=== PATIENT | male | born 2000 | race Caucasian/White ===

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

== ENCOUNTER 2020-10-07 06:17 | Emergency (ER) | payer BC ==
[2020-10-07 06:29] VITALS: BP 143/79; PULSE 78
[2020-10-07] MEDS ORDERED: Metoclopramide 10 MG/2 ML SDV IVPUSH ONE (06:38)
--- NOTE | 2020-10-07 06:42 | EDM.PDOC ---
<EvertonDeo lechuga Haley - Last Filed: 10/07/20 08:15> ED HPI GENERAL MEDICAL PROBLEM - General Chief Complaint: Gastrointestinal Problem Stated Complaint: VOMITING Time Seen by Provider: 10/07/20 06:37 - Related Data Allergies Allergy/AdvReac Type Severity Reaction Status Date / Time No Known Allergies Allergy Verified 10/07/20 06:29 Home Meds: Home Meds Ondansetron [Zofran ODT] 4 mg PO Q4H PRN #6 tab.dis 10/07/20 [Rx] Ondansetron [Zofran ODT] 4 mg PO Q4H PRN #6 tab.dis 10/07/20 [Rx] Course - Re-Assessments/Exams Free Text/Narrative Re-Assessment/Exam: 10/07/20 08:02 Patient is alert and awake and would like to go home. I went and visited with him. He is feeling better he still has some lightheadedness. His blood alcohol is back to normal his last drink was probably about 10:00 last night. He believes he will be okay to go home. Departure - Departure Time of Disposition: 08:02 Disposition: Home, Self-Care 01 Clinical Impression: Hangover Qualifiers: Complication of substance-induced condition: uncomplicated Qualified Code(s): F10.120 - Alcohol abuse with intoxication, uncomplicated - Discharge Information Prescriptions: Ondansetron [Zofran ODT] 4 mg PO Q4H PRN #6 tab.dis PRN Reason: Nausea/Vomiting Ondansetron [Zofran ODT] 4 mg PO Q4H PRN #6 tab.dis PRN Reason: Nausea/Vomiting Instructions: Alcohol Intoxication, [id number] Referrals: PCP,None [Primary Care Provider] - Forms: ED Department Discharge Additional Instructions: Return to the emergency room with any questions problems or worsening symptoms. Drink lots of fluids. Avoid alcohol. [place] [facility] will be open between 1 and 3 this afternoon and I have sent a prescription for Zofran, this is an antinausea medication, take 1 every 4 hours as needed. <Jl Soto - Last Filed: 10/09/20 07:21> ED HPI GENERAL MEDICAL PROBLEM - General Source of Information: Reports: Patient History Limitations: Reports: No Limitations - History of Present Illness INITIAL COMMENTS - FREE TEXT/NARRATIVE: 20-year-old male presents to the ED with intractable nausea and vomiting after a night of heavy drinking to celebrate the new year. Patient reports he drinks pineapple cider and was drinking numerous shots last evening. He has been vomiting since he got home from the bar last night. Denies any hematemesis. Mild diffuse upper abdominal discomfort. No diarrhea. No fever or chills. Feels weak. Dizzy upon standing. No history of abdominal surgery. Last meal was a hamburger approximately 2000 hrs. last evening. Emesis is been bilious. Patient reports no allergies to medication he is currently not taking any medications. Onset: Today Onset Date: 10/07/20 Onset Time: 01:00 Duration: Hour(s):, Constant (Actable nausea and vomiting.) Location: Reports: Abdomen (Intractable nausea and vomiting after night of heavy drinking.) Quality: Reports: Ache, Burning Severity: Moderate Improves with: Reports: None Worsens with: Reports: None Context: Reports: Other (Presents to the ED with intractable nausea and vomiting after a night of heavy drinking to celebrate the new .). Denies: Activity, Exercise, Lifting, Sick Contact, Trauma Associated Symptoms: Reports: Loss of Appetite, Malaise, Nausea/Vomiting. Denies: Chest Pain, Cough, cough w sputum, Diaphoresis, Fever/Chills, Headaches, Rash, Seizure (Current since 0100 hrs. 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: Other (see below) (Nothing will stay down.) Headache Pain Score (Numeric/FACES): 4 Past Medical History HEENT History: Reports: Epistaxis - Past Surgical History HEENT Surgical History: Reports: None, Oral Surgery Social & Family History - Tobacco Use Tobacco Use Status *Q: Never Tobacco User - Caffeine Use Caffeine Use: Reports: Energy Drinks - Recreational Drug Use Recreational Drug Use: No - Living Situation & Occupation Living situation: Reports: Single Occupation: Employed ED ROS GENERAL - Review of Systems Review Of Systems: See Below Constitutional: Reports: Malaise, Weakness, Fatigue, Decreased Appetite. Denies: Fever, Chills HEENT: Reports: Vertigo (Is a sense of the room is spinning at times.) Respiratory: Reports: No Symptoms Cardiovascular: Reports: No Symptoms Endocrine: Reports: No Symptoms GI/Abdominal: Reports: Abdominal Pain, Decreased Appetite (Dat discomfort from recurrent vomiting.), Nausea, Vomiting (Nausea and vomiting for the last 5 hours post heavy night of drinking alcohol.) : Reports: No Symptoms Musculoskeletal: Reports: No Symptoms Skin: Reports: No Symptoms Neurological: Reports: Dizziness Psychiatric: Reports: No Symptoms Hematologic/Lymphatic: Reports: No Symptoms Immunologic: Reports: No Symptoms ED EXAM, GI/ABD - Physical Exam Exam: See Below Exam Limited By: No Limitations General Appearance: Alert, WD/WN, Moderate Distress, Other (Current vomiting while I was in the exam room. Emesis is bilious without any blood. Temperature is reportedly 35.8. Question the accuracy of this. Heart rate 78 in sinus respiratory is 18 with O2 sats of 97% room air BP 1 4379) Eyes: Bilateral: Normal Appearance, Nystagmus (Nystagmus on lateral gaze) Throat/Mouth: Other (Tongue is dry and coated.) Head: Atraumatic, Normocephalic, Other (. No overt signs of any head or facial trauma.) Neck: Normal Inspection, Supple, Non-Tender, Full Range of Motion. No: Lymphadenopathy (L), Lymphadenopathy (R) Respiratory/Chest: No Respiratory Distress, Lungs Clear, Normal Breath Sounds, Chest Non-Tender Cardiovascular: Normal Peripheral Pulses, Regular Rate, Rhythm, No Edema, No Gallop, No Murmur, No Rub GI/Abdominal Exam: Normal Bowel Sounds, Soft, No Organomegaly, No Mass, Pelvis Stable, Tender, Other (Scaphoid abdomen). No: Guarding, Rigid (Mild tenderness to palpation epigastrium only.), Rebound (No peritoneal signs.) (Male) Exam: No Hernia Back Exam: Normal Inspection, Full Range of Motion. No: CVA Tenderness (L), CVA Tenderness (R) Extremities: Normal Inspection, Normal Range of Motion, Non-Tender, No Pedal Edema Neurological: Alert, Oriented, CN II-XII Intact, Normal Cognition Psychiatric: Normal Affect Skin Exam: Warm, Dry, Intact, Normal Color, No Rash Course - Vital Signs Last Recorded V/S: Last Vital Signs Temp 35.8 C L 10/07/20 06:24 Pulse 78 10/07/20 06:24 Resp 18 10/07/20 06:24 BP 143/79 H 10/07/20 06:24 Pulse Ox 97 10/07/20 06:24 - Orders/Labs/Meds Labs: Laboratory Tests 10/07/20 10/07/20 Range/Units 06:40 06:40 WBC 7.66 (4.23-9.07) K/mm3 RBC 5.73 (4.63-6.08) M/mm3 Hgb 16.3 (13.7-17.5) gm/dl Hct 47.3 (40.1-51.0) % MCV 82.5 (79.0-92.2) fl MCH 28.4 (25.7-32.2) pg MCHC 34.5 (32.2-35.5) g/dl RDW Std Deviation 39.5 (35.1-43.9) fL Plt Count 230 (163-337) K/mm3 MPV 10.0 (9.4-12.3) fl Neut % (Auto) 76.3 H (34.0-67.9) % Lymph % (Auto) 16.1 L (21.8-53.1) % [place] % (Auto) 7.0 (5.3-12.2) % Eos % (Auto) 0.4 L (0.8-7.0) Baso % (Auto) 0.1 (0.1-1.2) % Neut # (Auto) 5.84 H (1.78-5.38) K/mm3 Lymph # (Auto) 1.23 L (1.32-3.57) K/mm3 [place] # (Auto) 0.54 (0.30-0.82) K/mm3 Eos # (Auto) 0.03 L (0.04-0.54) K/mm3 Baso # (Auto) 0.01 (0.01-0.08) K/mm3 Sodium 140 (136-145) mEq/L Potassium 4.3 (3.5-5.1) mEq/L Chloride 103 (98-107) mEq/L Carbon Dioxide 29 (21-32) mEq/L Anion Gap 12.3 (5-15) BUN 12 (7-18) mg/dL Creatinine 1.0 (0.7-1.3) mg/dL Est Cr Clr Drug Dosing 130.24 mL/min Estimated GFR (MDRD) > 60 (>60) mL/min BUN/Creatinine Ratio 12.0 L (14-18) Glucose 152 H (74-106) mg/dL Calcium 9.4 (8.5-10.1) mg/dL Total Bilirubin 0.7 (0.2-1.0) mg/dL AST 24 (15-37) U/L ALT 39 (16-63) U/L Alkaline Phosphatase 72 (46-116) U/L Total Protein 8.2 (6.4-8.2) g/dl Albumin 4.5 (3.4-5.0) g/dl Globulin 3.7 gm/dL Albumin/Globulin Ratio 1.2 (1-2) Lipase 61 L (73-393) U/L Ethyl Alcohol 0.00 (0.00) gm% Meds: Medications Discontinued Medications Generic Name Dose Route Start Last Admin Trade Name Freq PRN Reason Stop Dose Admin Dextrose/Lactated Ringer's 1,000 mls @ 999 mls/hr 10/07/20 06:45 10/07/20 06:42 Dextrose 5%-Lactated Ringers IV 999 mls/hr ASDIRECTED TEREZA Administration Metoclopramide HCl 10 mg 10/07/20 06:38 10/07/20 06:42 Reglan IVPUSH 10/07/20 06:39 10 mg ONETIME ONE Administration - Radiology Interpretation Free Text/Narrative:: 20-year-old male presents to the ED with intractable nausea and vomiting since getting home from the bar at 0100 hrs. this morning. Reports drinking alcohol fairly heavily last night more than his usual to celebrate the new year. This included pineapple cider time 7 or 8 drinks and then shots of mixed alcohol. Patient reports intractable nausea and vomiting without any hematemesis. Mild upper abdominal pain with no radiation to the back. Benign abdominal examination. Plan routine labs to be done including a serum lipase. IV will be D5 LR at open. Given Reglan 10 mg IV. Suspect alcohol induced gastritis possible alcohol induced hepatitis. - Re-Assessments/Exams Free Text/Narrative Re-Assessment/Exam: 10/07/20 06:59 Hematology reveals a normal white count at 7.66. The auto differential shows 76% neutrophils. Hemoglobin is 16.3 with hematocrit of 47.3 indicating hemoconcentration. Platelet count is normal at 230,000 10/07/20 07:05 Care will be turned over to Dr Flores at change of shift. Sepsis Event Note (ED) - Evaluation Sepsis Screening Result: No Definite Risk
[2020-10-07] MEDS ORDERED: Dextrose 5%-Lactated Ringers 1,000 ML IV SCH (06:45)
== END 2020-10-07 08:17 | disposition home or self-care (01) ==
LOC: JD.ED 06:17
DX: F10.120 Alcohol abuse with intoxication, uncomplicated (principal); H55.00 Unspecified nystagmus
CPT/HCPCS: 36415; 80053; 80179; 83690; 85025; 96374; 99284; J2765; J7121

== ENCOUNTER 2021-05-14 13:15 | Emergency (ER) | payer BC ==
[2021-05-14] MEDS ORDERED: Ondansetron 4 MG/2 ML SDV IVPUSH ONE (13:46)
[2021-05-14] MEDS ORDERED: Ketorolac 30 MG/ML SDV IVPUSH ONE (13:46)
[2021-05-14] MEDS ORDERED: Sodium Chloride 0.9% 1,000 ML IV STA (13:46)
[2021-05-14] MEDS ORDERED: diphenhydrAMINE 50 MG/ML SDV IVPUSH ONE (13:49)
[2021-05-14] MEDS ORDERED: Sodium Chloride 0.9% 10 ML Syringe FLUSH PRN (13:49)
--- NOTE | 2021-05-14 15:38 | EDM.PDOC ---
ED HPI GENERAL MEDICAL PROBLEM - General Chief Complaint: Headache Stated Complaint: MIGRAINE X 2 DAYS SENT BY BECCA Time Seen by Provider: 05/14/21 13:26 Source of Information: Reports: Patient, RN Notes Reviewed History Limitations: Reports: No Limitations - History of Present Illness INITIAL COMMENTS - FREE TEXT/NARRATIVE: Patient is a 20-year-old male presenting to the emergency department with complaints of 2-day history of migraine headache. Reports symptoms began early yesterday. Is localized to be behind his bilateral eyes, right more so than left. Reports nausea with dry heaving yesterday. None today. He is had no fever, but states he does feel chilled occasionally. Reports he does have a history of headaches as a teenager which do continue now. He had a migraine when he had Covid back in July. States his headache feels similar to that episode. Denies any neck pain or vision changes. He has no numbness or tingling of the extremities. Had no recent head injuries. His only been using [id number] ibuprofen for relief. He reports that he has had intermittent bilateral flank pain off and on for the last few weeks. Is not present at this time. States it only last for a short period of time and then resolves. Denies any history of kidney stones. Has not noticed any blood in his urine. Denies any burning with urination. He does not have a primary care provider and has never seen a neurologist. Posterior Headache Pain Score (Numeric/FACES): 2 - Related Data Allergies Allergy/AdvReac Type Severity Reaction Status Date / Time No Known Allergies Allergy Verified 10/07/20 06:29 Home Meds: Home Meds . [No Known Home Meds] 05/14/21 [History] Past Medical History HEENT History: Reports: Epistaxis Neurological History: Reports: Migraines - Infectious Disease History Infectious Disease History: Reports: None - Past Surgical History HEENT Surgical History: Reports: None, Oral Surgery Social & Family History - Tobacco Use Tobacco Use Status *Q: Current Every Day Tobacco User Years of Tobacco use: 3 Packs/Tins Daily: 0.1 - Caffeine Use Caffeine Use: Reports: Energy Drinks, Soda, Tea - Recreational Drug Use Recreational Drug Use: No - Living Situation & Occupation Living situation: Reports: Single Occupation: Employed ED ROS GENERAL - Review of Systems Review Of Systems: Comprehensive ROS is negative, except as noted in HPI. - Physical Exam Exam: See Below Exam Limited By: No Limitations General Appearance: Alert, WD/WN, No Apparent Distress Respiratory/Chest: No Respiratory Distress, Lungs Clear, Normal Breath Sounds, No Accessory Muscle Use, Chest Non-Tender Cardiovascular: Normal Peripheral Pulses, Regular Rate, Rhythm, No Edema, No Gallop, No JVD, No Murmur, No Rub GI/Abdominal: Normal Bowel Sounds, Soft, Non-Tender, No Organomegaly, No Distention, No Abnormal Bruit, No Mass Neuro Exam (Abbreviated): Alert, Oriented, CN II-XII Intact, Normal Cognition, Normal Gait, Normal Reflexes, No Motor/Sensory Deficits Psychiatric: Normal Affect, Normal Mood Skin Exam: Warm, Dry, Intact, Normal Color, No Rash Course - Vital Signs Last Recorded V/S: Last Vital Signs Temp 97.5 F 05/14/21 16:12 Pulse 79 05/14/21 16:12 Resp 16 05/14/21 16:12 BP 117/64 05/14/21 16:12 Pulse Ox 98 05/14/21 16:12 - Orders/Labs/Meds Labs: Laboratory Tests 05/14/21 05/14/21 05/14/21 Range/Units 14:10 14:10 14:35 WBC 4.16 L (4.23-9.07) K/mm3 RBC 5.93 (4.63-6.08) M/mm3 Hgb 16.9 (13.7-17.5) gm/dl Hct 49.1 (40.1-51.0) % MCV 82.8 (79.0-92.2) fl MCH 28.5 (25.7-32.2) pg MCHC 34.4 (32.2-35.5) g/dl RDW Std Deviation 39.4 (35.1-43.9) fL Plt Count 165 (163-337) K/mm3 MPV 10.1 (9.4-12.3) fl Neut % (Auto) 79.9 H (34.0-67.9) % Lymph % (Auto) 6.7 L (21.8-53.1) % [place] % (Auto) 13.2 H (5.3-12.2) % Eos % (Auto) 0 L (0.8-7.0) Baso % (Auto) 0.2 (0.1-1.2) % Neut # (Auto) 3.32 (1.78-5.38) K/mm3 Lymph # (Auto) 0.28 L (1.32-3.57) K/mm3 [place] # (Auto) 0.55 (0.30-0.82) K/mm3 Eos # (Auto) 0.00 L (0.04-0.54) K/mm3 Baso # (Auto) 0.01 (0.01-0.08) K/mm3 Manual Slide Review Abnormal smear Sodium 141 (136-145) mEq/L Potassium 4.4 (3.5-5.1) mEq/L Chloride 102 (98-107) mEq/L Carbon Dioxide 28 (21-32) mEq/L Anion Gap 15.4 H (5-15) BUN 8 (7-18) mg/dL Creatinine 1.1 (0.7-1.3) mg/dL Est Cr Clr Drug Dosing 118.94 mL/min Estimated GFR (MDRD) > 60 (>60) mL/min BUN/Creatinine Ratio 7.3 L (14-18) Glucose 121 H (70-99) mg/dL Calcium 8.9 (8.5-10.1) mg/dL Total Bilirubin 0.6 (0.2-1.0) mg/dL AST 18 (15-37) U/L ALT 25 (16-63) U/L Alkaline Phosphatase 69 (46-116) U/L C-Reactive Protein 1.5 H* (<1.0) mg/dL Total Protein 8.0 (6.4-8.2) g/dl Albumin 4.2 (3.4-5.0) g/dl Globulin 3.8 gm/dL Albumin/Globulin Ratio 1.1 (1-2) Urine Color (Yellow) Urine Appearance (Clear) Urine pH (5.0-8.0) Ur Specific [place] (1.005-1.030) Urine Protein (Negative) Urine Glucose (UA) (Negative) Urine Ketones (Negative) Urine Occult Blood (Negative) Urine Nitrite (Negative) Urine Bilirubin (Negative) Urine Urobilinogen (0.2-1.0) Ur Leukocyte Esterase (Negative) Urine RBC (0-5) /hpf Urine WBC (0-5) /hpf Ur Squamous Epith Cells (0-5) /hpf Urine Bacteria (FEW) /hpf Urine Mucus (FEW) /hpf SARS-CoV-2 RNA (QUIQUE) Negative (NEGATIVE) 05/14/21 Range/Units 15:25 WBC (4.23-9.07) K/mm3 RBC (4.63-6.08) M/mm3 Hgb (13.7-17.5) gm/dl Hct (40.1-51.0) % MCV (79.0-92.2) fl MCH (25.7-32.2) pg MCHC (32.2-35.5) g/dl RDW Std Deviation (35.1-43.9) fL Plt Count (163-337) K/mm3 MPV (9.4-12.3) fl Neut % (Auto) (34.0-67.9) % Lymph % (Auto) (21.8-53.1) % [place] % (Auto) (5.3-12.2) % Eos % (Auto) (0.8-7.0) Baso % (Auto) (0.1-1.2) % Neut # (Auto) (1.78-5.38) K/mm3 Lymph # (Auto) (1.32-3.57) K/mm3 [place] # (Auto) (0.30-0.82) K/mm3 Eos # (Auto) (0.04-0.54) K/mm3 Baso # (Auto) (0.01-0.08) K/mm3 Manual Slide Review Sodium (136-145) mEq/L Potassium (3.5-5.1) mEq/L Chloride (98-107) mEq/L Carbon Dioxide (21-32) mEq/L Anion Gap (5-15) BUN (7-18) mg/dL Creatinine (0.7-1.3) mg/dL Est Cr Clr Drug Dosing mL/min Estimated GFR (MDRD) (>60) mL/min BUN/Creatinine Ratio (14-18) Glucose (70-99) mg/dL Calcium (8.5-10.1) mg/dL Total Bilirubin (0.2-1.0) mg/dL AST (15-37) U/L ALT (16-63) U/L Alkaline Phosphatase (46-116) U/L C-Reactive Protein (<1.0) mg/dL Total Protein (6.4-8.2) g/dl Albumin (3.4-5.0) g/dl Globulin gm/dL Albumin/Globulin Ratio (1-2) Urine Color Yellow (Yellow) Urine Appearance Clear (Clear) Urine pH 7.0 (5.0-8.0) Ur Specific [place] 1.025 (1.005-1.030) Urine Protein Trace H (Negative) Urine Glucose (UA) Negative (Negative) Urine Ketones Negative (Negative) Urine Occult Blood 1+ H (Negative) Urine Nitrite Negative (Negative) Urine Bilirubin Negative (Negative) Urine Urobilinogen 1.0 (0.2-1.0) Ur Leukocyte Esterase Negative (Negative) Urine RBC 20-30 H (0-5) /hpf Urine WBC 0-5 (0-5) /hpf Ur Squamous Epith Cells 0-5 (0-5) /hpf Urine Bacteria Few (FEW) /hpf Urine Mucus Many H (FEW) /hpf SARS-CoV-2 RNA (QUIQUE) (NEGATIVE) Meds: Medications Discontinued Medications Generic Name Dose Route Start Last Admin Trade Name Freq PRN Reason Stop Dose Admin Diphenhydramine HCl 50 mg 05/14/21 13:49 05/14/21 14:17 Diphenhydramine 50 Mg/Ml Sdv IVPUSH 05/14/21 13:50 50 mg ONETIME ONE Administration Sodium Chloride 1,000 mls @ 999 mls/hr 05/14/21 13:46 05/14/21 14:21 Normal Saline IV 05/14/21 14:46 999 mls/hr NOW STA Administration Ketorolac Tromethamine 30 mg 05/14/21 13:46 05/14/21 14:19 Ketorolac 30 Mg/Ml Sdv IVPUSH 05/14/21 13:47 30 mg ONETIME ONE Administration Ondansetron HCl 4 mg 05/14/21 13:46 05/14/21 14:15 Ondansetron 4 Mg/2 Ml Sdv IVPUSH 05/14/21 13:47 4 mg ONETIME ONE Administration Sodium Chloride 10 ml 05/14/21 13:49 05/14/21 14:11 Sodium Chloride 0.9% 10 Ml Syringe FLUSH 10 ml ASDIRECTED PRN Administration Keep Vein Open - Re-Assessments/Exams Free Text/Narrative Re-Assessment/Exam: Patient is a 20-year-old male presenting to the emergency department with complaints of migraine headache for the last 2 days. He had a similar migraine when he had Covid a few months back as well as history of less severe headaches which he has been told are "generalized headaches ". No recent head injuries. Denies fever but is occasionally chilled. He had some nausea with dry heaving yesterday but none so far today. Does complain of light sensitivity but has no vision changes. Exam is overall unremarkable. He has no evidence of nuchal rigidity. No neck pain. Neurologic exam is normal. I have ordered blood work, head CT, Covid test, IV fluids, Toradol, Zofran, and Benadryl. 05/14/21 16:00 Hematology is grossly unremarkable.. He does have microscopic blood in his urine but no evidence of infection. Covid is negative. Head CT shows no acute abnormalities. Results discussed with patient. He is feeling much better and would like to go home so he can eat. I did recommend that he establish care with a primary care provider to have his urine rechecked and for ongoing management of migraines should these recur. They plan to schedule with Dr. De León at [facility]. I will send referral. Discussed return precautions. Discharge instructions as documented. Departure - Departure Time of Disposition: 16:00 Disposition: Home, Self-Care 01 Condition: Good Clinical Impression: Headache Qualifiers: Headache type: unspecified Headache chronicity pattern: acute headache Intractability: not intractable Qualified Code(s): R51.9 - Headache, unspecified - Discharge Information *PRESCRIPTION DRUG MONITORING PROGRAM REVIEWED*: No *COPY OF PRESCRIPTION DRUG MONITORING REPORT IN PATIENT MOHIT: No Instructions: Migraine Headache, [id number] Referrals: Alisa Mastres MD [Physician] - Forms: ED Department Discharge Additional Instructions: You were seen in the emergency department today for headache with nausea for the last 2 days. Work-up included blood work, urinalysis, head CT, and Covid test. Results of your work-up were found to be overall normal. There is a small amount of microscopic blood in your urine which may be an incidental finding, however I would recommend follow-up with a primary care provider to reevaluate this. Covid test was negative. Head CT was normal. Blood work was normal. While in the ER, he received IV fluids, Toradol, Zofran, and Benadryl. This did significantly improve your symptoms. Recommend that you go home and rest. Use Tylenol and ibuprofen as needed for discomfort. Call and schedule a follow-up visit and to establish care with a provider this week. Return to ER for any new or worsening symptoms.. Sepsis Event Note (ED) - Evaluation Sepsis Screening Result: No Definite Risk
[2021-05-14 16:18] VITALS: BP 117/64; PULSE 79
--- NOTE | 2021-05-14 20:10 | CT ---
Head CT Technique: Multiple axial sections through the brain were obtained. Intravenous contrast not utilized. Reconstructed coronal and sagittal images were obtained. Comparison: No prior intracranial imaging is available. Findings: Ventricles along with basal cisterns and sulci over the convexities are within normal limits for the patient's age. No abnormal parenchymal densities are seen. No evidence of intracranial hemorrhage is seen. No midline shift or mass-effect is seen. Bone window settings were reviewed. Visualized mastoid sinuses are clear. There is a rounded soft tissue density noted within the right maxillary sinus which likely represents a retention cyst measuring 1.7 cm. No other paranasal sinus findings are seen. No acute calvarial abnormality is appreciated. Impression: 1. 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 2. Nothing acute is seen on noncontrast head CT study. Diagnostic code #2 I agree with preliminary report from [facility], finalized on 05/14/20, 3:27 PM CDT, code 1
== END 2021-05-14 16:13 | disposition home or self-care (01) ==
LOC: JD.ED 13:15
DX: R51.9 Headache, unspecified (principal); Z72.0 Tobacco use; Z20.822 Contact with and (suspected) exposure to COVID-19
CPT/HCPCS: 36415; 70450; 80053; 81001; 85025; 86140; 87635; 96374; 96375; 99284; J1200; J1885; J2405; J7030; U0002

== ENCOUNTER 2021-10-10 08:33 | Emergency (ER) | payer SELFPAY ==
[2021-10-10 08:48] VITALS: BP 129/73; PULSE 58
--- NOTE | 2021-10-10 09:05 | EDM.PDOC ---
ED HPI GENERAL MEDICAL PROBLEM - General Chief Complaint: ENT Problem Stated Complaint: NOSEBLEED Time Seen by Provider: 10/10/21 08:50 Source of Information: Reports: Patient History Limitations: Reports: No Limitations - History of Present Illness INITIAL COMMENTS - FREE TEXT/NARRATIVE: 21-year-old male presents the emergency department today with complaints of a bloody nose. He states that last evening his nose began bleeding from the right naris and lasted approximately 10 minutes. He states he did get the bleeding under control and then placed some Neosporin into the naris. He states that this morning his right naris began bleeding and lasted approximately 15 minutes however by the time he arrived in the emergency department the bleeding had stopped. Denies any bleeding disorders. He states he does have a humidifier however he has not been using it and does not consistently use Neosporin in his naris for moisture. He denies any recent fever, chills, nausea, vomiting, diarrhea or any other infectious symptoms. Nare Pain Score (Numeric/FACES): 0 - Related Data Allergies Allergy/AdvReac Type Severity Reaction Status Date / Time No Known Allergies Allergy Verified 10/10/21 08:48 Home Meds: Home Meds Sertraline HCl 25 mg PO DAILY 10/10/21 [History] Zolpidem Tartrate [Ambien] 5 mg PO BEDTIME 10/10/21 [History] Past Medical History HEENT History: Reports: Epistaxis Neurological History: Reports: Migraines Psychiatric History: Reports: Depression - Infectious Disease History Infectious Disease History: Reports: None - Past Surgical History HEENT Surgical History: Reports: None, Oral Surgery Social & Family History - Tobacco Use Tobacco Use Status *Q: Never Tobacco User - Caffeine Use Caffeine Use: Reports: Energy Drinks - Recreational Drug Use Recreational Drug Use: Yes Drug Use in Last 12 Months: Yes Recreational Drug Type: Reports: Marijuana/Hashish - Living Situation & Occupation Living situation: Reports: Single Occupation: Employed ED ROS ENT - Review of Systems Review Of Systems: Comprehensive ROS is negative, except as noted in HPI. ED EXAM, ENT - Physical Exam Exam: See Below Exam Limited By: No Limitations General Appearance: Alert, WD/WN, No Apparent Distress Ears: Normal External Exam, Normal Canal, Hearing Grossly Normal, Normal TMs Nose: Normal Inspection, Normal Mucousa, No Blood, Other (Area superficial capillaries appreciated on the right anterior septum.) Mouth/Throat: Normal Inspection, Normal Oropharynx Head: Atraumatic Neck: Normal Inspection, Supple Respiratory/Chest: No Respiratory Distress, No Accessory Muscle Use Cardiovascular: Normal Peripheral Pulses, Regular Rate, Rhythm, No Edema, No Murmur GI/Abdominal: Normal Bowel Sounds, Soft, Non-Tender, No Distention (Male) Exam: Deferred Rectal (Males) Exam: Deferred Back: Normal Inspection Extremities: Normal Inspection Neurological: Alert, Oriented, Normal Cognition Psychiatric: Normal Affect, Normal Mood Skin: Warm, Dry, Intact, Normal Color, No Rash Lymphatic: No Adenopathy Course - Vital Signs Text/Narrative:: Stated above, patient presents with epistaxis from right nose. However at the time of my exam, there is no active bleeding appreciated. There is an area of superficial capillaries noted along the anterior septum of the right naris. Recommend that the patient keep his humidifier filled at all times and continuously running to promote moisture in his home. Also recommend that he apply Polysporin to his bilateral naris twice daily, morning and night. Patient was given bacitracin ointment to apply while in the emergency department today. He will be discharged home. Last Recorded V/S: Last Vital Signs Temp 97.3 F 10/10/21 08:40 Pulse 58 L 10/10/21 08:40 Resp 16 10/10/21 08:40 BP 129/73 10/10/21 08:40 Pulse Ox 98 10/10/21 08:40 Departure - Departure Time of Disposition: 09:05 Disposition: Home, Self-Care 01 Condition: Good Clinical Impression: Epistaxis - Discharge Information Instructions: Nosebleed, Adult, [id number] Referrals: Madhavi Carter NP [Primary Care Provider] - Additional Instructions: You were seen in the emergency department today for complaints of a nosebleed to your right naris. At the time of my exam there is no active bleeding appreciated however as discussed there are superficial capillaries to your right anterior septal area. Recommend that you keep your humidifier running at all times throughout the winter months. Apply Polysporin ointment to your bilateral nares twice daily, morning and night. Be sure to stay hydrated and drink plenty of fluids. Return to the ER with any problems or concerns. Sepsis Event Note (ED) - Evaluation Sepsis Screening Result: No Definite Risk - Focused Exam Vital Signs: Vital Signs Temp Pulse Resp BP Pulse Ox 10/10/21 08:40 97.3 F 58 L 16 129/73 98
== END 2021-10-10 09:17 | disposition home or self-care (01) ==
LOC: JD.ED 08:33
DX: R04.0 Epistaxis (principal)
CPT/HCPCS: 99283

== ENCOUNTER 2021-12-01 22:17 | Emergency (ER) | payer BC ==
[2021-12-01 22:41] VITALS: BP 133/88; PULSE 65
[2021-12-01] MEDS ORDERED: Morphine 4 MG/ML Syringe IVPUSH ONE (23:53)
[2021-12-01] MEDS ORDERED: Ondansetron 4 MG/2 ML SDV IVPUSH ONE (23:53)
[2021-12-02] MEDS ORDERED: Sodium Chloride 0.9% 10 ML SDV FLUSH ONE (00:16)
[2021-12-02] MEDS ORDERED: Iopamidol 612 MG/ML 100 ML Bottle IVPUSH ONE (00:16)
[2021-12-02] MEDS ORDERED: Sodium Chloride 0.9% 1,000 ML IV ONE (01:04)
[2021-12-02] MEDS ORDERED: Levofloxacin 500 MG Tab PO ONE (02:27)
== END 2021-12-02 04:11 | disposition home or self-care (01) ==
LOC: JD.ED 22:17
DX: K52.9 Noninfective gastroenteritis and colitis, unspecified (principal); Z86.16 Personal history of COVID-19
CPT/HCPCS: 36415; 74177; 80053; 81001; 83605; 83690; 85025; 96374; 96375; 99284; A9270; J2270; J2405; J7030; Q9967; 99285